=== PATIENT | female | born 1975 | race Hispanic/Latino ===

== ENCOUNTER 2016-11-23 02:16 | Emergency (ER) | payer OTHER, SELFPAY ==
[2016-11-23 02:26] VITALS: TEMP 98.8; O2SAT 99; BMI 40.1
--- NOTE | 2016-11-23 02:57 | ED PDOC ---
Arrival/HPI <PlacidoAj - Last Filed: 11/23/16 05:12> - General Historian: Patient - History of Present Illness Time/Duration: Prior to Arrival Symptom Onset: Sudden Symptom Course: Unchanged <Ivan Guerin - Last Filed: 11/23/16 05:17> - General Chief Complaint: Lower Extremity Problem/Injury Time Seen by Provider: 11/23/16 02:44 - History of Present Illness Narrative History of Present Illness (Text): 41 F with no significant pmh presents to the emergency department following mechanical fall. Pt states that she tripped over a step and fell down 6 stairs and hurt her R leg - including her knee and ankle . She denies hitting her head or passing out. Pain is worse with ambulation. Denies any headaches, or neck pain. She denies any headache, dizziness, f/c, shortness of breath, chest pain, abd pain, urinary or bm changes. (Ivan Guerin) Past Medical History - Provider Review Nursing Documentation Reviewed: Yes - Psychiatric Hx Substance Use: No - Surgical History Hx Cholecystectomy: Yes Other/Comment: Dental <Ivan Guerin - Last Filed: 11/23/16 05:17> Family/Social History - Physician Review Nursing Documentation Reviewed: Yes Family/Social History: No Known Family HX Smoking Status: Never Smoked Hx Alcohol Use: Yes Frequency of alcohol use: Socially Hx Substance Use: No <Ivan Guerin - Last Filed: 11/23/16 05:17> Allergies/Home Meds <Aj Cummins - Last Filed: 11/23/16 05:12> <Ivan Guerin - Last Filed: 11/23/16 05:17> Allergies/Adverse Reactions: Allergies Penicillins Allergy (Verified 11/23/16 02:24) RASH Review of Systems - Physician Review All systems were reviewed & negative as marked: Yes - Review of Systems Respiratory: absent: SOB, Cough Cardiovascular: absent: Chest Pain, Palpitations, Syncope Musculoskeletal: Arthralgias (knee and ankle ) Neurological: absent: Headache, Dizziness <Ivan Guerin - Last Filed: 11/23/16 05:17> Physical Exam Temperature: Afebrile Blood Pressure: Normal Pulse: Tachycardic Respiratory Rate: Normal Appearance: Positive for: Well-Appearing, Non-Toxic, Comfortable Pain Distress: Mild Mental Status: Positive for: Alert and Oriented X 3 - Systems Exam Head: Present: Atraumatic, Normocephalic Pupils: Present: PERRL Extroacular Muscles: Present: EOMI Conjunctiva: Present: Normal Mouth: Present: Moist Mucous Membranes Neck: Present: Normal Range of Motion Respiratory/Chest: Present: Clear to Auscultation, Good Air Exchange. No: Respiratory Distress, Accessory Muscle Use Cardiovascular: Present: Regular Rate and Rhythm, Normal S1, S2. No: Murmurs Abdomen: Present: Normal Bowel Sounds. No: Tenderness, Distention, Peritoneal Signs Upper Extremity: Present: Normal Inspection. No: Cyanosis, Edema Lower Extremity: Present: Normal Inspection, Tenderness, Erythema, Other ( Limted ROM of knee, pulses and sensation is intact. Ecchymosis and erythema of medial foot above ankle. ). No: Edema, CALF TENDERNESS, Swelling Neurological: Present: GCS=15, CN II-XII Intact, Speech Normal Skin: Present: Warm, Dry, Normal Color. No: Rashes Psychiatric: Present: Alert, Oriented x 3, Normal Insight, Normal Concentration <Ivan Guerin - Last Filed: 11/23/16 05:17> Vital Signs Temp Pulse Resp BP Pulse Ox 11/23/16 05:00 92 H 18 142/80 99 11/23/16 02:25 98.8 F 112 H 20 146/85 99 Medical Decision Making <Aj Cummins - Last Filed: 11/23/16 05:12> <Ivan Guerin - Last Filed: 11/23/16 05:17> ED Course and Treatment: 11/23/16 03:35 patient seen and evaluated with resident. Agree with HPI, clinical findings, plan and treatment. Patient is a 41 year old female who presents to the emergency department complaining of right knee and ankle pain following mechinicla fall. Denies any head trauma or LOC. Will order Ankle and Knee X-ray to r/o fractures. 11/23/16 05:13 X-rays negative for any fractures. Patient is stable for discharge. Patient paced on knee immobilizer. Advised to present to emergency department for worsening symptoms and follow up with orthopedist within few days. (Aj Cummins) Impression: 41 F with no significant pmh presents to the emergency department following mechanical fall. Differential Diagnosis included but are not limited to: r/o acute fx Plan: - Ankle and knee xrays - pain control - Reassess and disposition Progress Notes: 11/23/16 03:00 Resting comfortably in bed. Denies any pain. 11/23/16 04:32 Ankle and Knee xray as read by me and Dr Cummins show no acute fracture. Pt states that her pain has since much improved. On reevaluation the patient feels better and is in no acute distress. I have discussed the results and plan with the patient, who expresses understanding. Patient given the opportunity to ask question, all questions were answered and there is agreement with the plan to discharge the patient home. Patient is stable for discharge. Patient was instructed to follow up with physician/clinic in 1-2 days or return if symptoms persist/worsen or new concerning symptoms arise. 11/23/16 05:02 Will order knee immobilizer (Ivan Guerin) - RAD Interpretation Radiology Orders: 11/23/16 02:50 ANKLE RIGHT 3 VIEWS ROUTINE [RAD] Stat KNEE W PATELLA RIGHT 3 VIEW [RAD] Stat - PA / CONDUIT MECHANIC / Resident Statement / has reviewed & agrees with the documentation as recorded. MD/ has examined the patient and agrees with the treatment plan. <Aj Cummins - Last Filed: 11/23/16 05:12> <Ivan Guerin - Last Filed: 11/23/16 05:17> - Scribe Statement Nena Robertson Provider Scribe Attestation: All medical record entries made by the Scribe were at my direction and personally dictated by me. I have reviewed the chart and agree that the record accurately reflects my personal performance of the history, physical exam, medical decision making, and the department course for this patient. I have also personally directed, reviewed, and agree with the discharge instructions and disposition. (Aj Cummins) Disposition/Present on Arrival <Aj Cummins - Last Filed: 11/23/16 05:12> - Present on Arrival Any Indicators Present on Arrival: No History of DVT/PE: No History of Uncontrolled Diabetes: No Urinary Catheter: No History of Decub. Ulcer: No History Surgical Site Infection Following: None - Disposition Have Diagnosis and Disposition been Completed?: Yes Disposition Time: 04:30 Patient Plan: Discharge <Ivan Guerin - Last Filed: 11/23/16 05:17> - Disposition Diagnosis: Knee sprain, Ankle sprain Disposition: HOME/ ROUTINE Patient Problems: Current Active Problems Problem Status Onset Ankle sprain Acute Knee sprain Acute Condition: IMPROVED Additional Instructions: Aline Butterfield, thank you for letting us take care of you today. Your provider was Dr Cummins. You were treated for ankle and knee sprain. The emergency medical care you received today was directed at your acute symptoms. If you were prescribed any medication, please fill it and take as directed. It may take several days for your symptoms to resolve. Return to the Emergency Department if your symptoms worsen, do not improve, or if you have any other problems. Please contact your doctor or call one of the physicians/clinics you have been referred to that are listed on the Patient Visit Information form that is included in your discharge packet. Bring any paperwork you were given at discharge with you along with any medications you are taking to your follow up visit. Our treatment cannot replace ongoing medical care by a primary care provider (PCP) outside of the emergency department. Thank you for allowing the [facility] team to be part of your care today. Follow up with the orthopedist with in 1-2 days/in the interim no weight bearing on the affected areas/use crutches Prescriptions: Ibuprofen [Motrin] 600 mg PO Q6H PRN #12 tab PRN Reason: Pain, Moderate (4-7) Referrals: Krystyna Deluca MD [Staff Provider] - Follow up with primary
[2016-11-23 05:15] VITALS: BP 142/80; PULSE 92; RESP 18
--- NOTE | 2016-11-23 08:41 | RAD ---
PROCEDURE: Right Knee Radiographs. HISTORY: fall COMPARISON: None. FINDINGS: BONES: Normal. No fracture. JOINTS: Normal. No osteoarthritis. JOINT EFFUSION: None. OTHER FINDINGS: None. IMPRESSION: Normal radiographs of the right knee.
--- NOTE | 2016-11-23 08:42 | RAD ---
PROCEDURE: Right Ankle Radiographs. HISTORY: fall COMPARISON: None FINDINGS: BONES: Normal. No fracture. JOINTS: Normal. No osteoarthritis. Ankle mortise maintained. Talar dome intact SOFT TISSUES: Soft tissue swelling OTHER FINDINGS: None. IMPRESSION: Negative study
== END 2016-11-23 05:15 | disposition home or self-care (01) ==
LOC: ED 02:16
DX: S83.91XA Sprain of unspecified site of right knee, initial encounter (principal); S93.401A Sprain of unspecified ligament of right ankle, initial encounter; W10.8XXA Fall (on) (from) other stairs and steps, initial encounter; Y93.89 Activity, other specified; Y92.89 Other specified places as the place of occurrence of the external cause